=== PATIENT | female | born 1945 | race Caucasian/White ===

== ENCOUNTER 2018-06-29 23:38 | Inpatient (IN) | payer MEDICARE, OTHER ==
[~2018-06-29] VITALS: Ht 162.6 cm; Wt 50.0 kg
[2018-06-29] MEDS ORDERED: normal saline 1000ml 1,000 ML IV ONE (23:55)
[2018-06-30] VITALS (16 sets, daily range): BP systolic 70–146; BP diastolic 45–93
[2018-06-30 00:11] LABS: BASOPHILS % (AUTO) 0.4 % (0-1); EOSINOPHILS % (AUTO) 0.1 % (0-6); HEMATOCRIT 55.3 % (35.0-45.0); HEMOGLOBIN 17.9 g/dl (12.0-16.0); LYMPHOCYTES # (AUTO) 0.4 X10'3 (1.1-4.8); MEAN CORPUSCULAR HEMOGLOBIN 30.3 PG (27.0-31.0); MEAN CORPUSCULAR HGB CONC 32.2 % (33.0-36.5); MEAN CORPUSCULAR VOLUME 94.1 FL (78-98); MEAN PLATELET VOLUME 10.6 FL (7.4-10.4); MONOCYTES # (AUTO) 0.3 X10'3 (0-0.9); NEUTROPHILS % (AUTO) 88.5 % (42-75); PLATELET COUNT 103 X10'3 (140-440); RED BLOOD COUNT 5.89 X10'6 (4.20-5.60); RED CELL DISTRIBUTION WIDTH 19.9 % (11.5-14.5); WHITE BLOOD COUNT 6.7 X10'3 (4.5-11.0)
[2018-06-30 00:22] LABS: ALANINE AMINOTRANSFERASE 39 U/L (12-78); ALBUMIN 3.1 G/DL (3.4-5.0); ALKALINE PHOSPHATASE 77 IU/L (46-116); ANION GAP 22 (8-16); ASPARTATE AMINO TRANSFERASE 56 U/L (10-37); BILIRUBIN,TOTAL 4.9 MG/DL (0.1-1.0); BLOOD UREA NITROGEN 95 MG/DL (7-18); BUN/CREATININE RATIO 34.9 (6.6-38.0); CALCIUM 9.3 MG/DL (8.5-10.1); CHLORIDE 91 MMOL/L (99-107); CREATINE KINASE 65 U/L (26-192); CREATININE 2.72 MG/DL (0.40-0.90); GLUCOSE 84 MG/DL (70-104); SODIUM 128 MMOL/L (135-145); eGFR 17 ML/MIN
[2018-06-30 00:37] LABS: TOTAL CARBON DIOXIDE 14.7 MMOL/L (24-32)
[2018-06-30 00:38] LABS: POTASSIUM 6.3 MMOL/L (3.5-5.1); TROPONIN I 0.68 NG/ML (0.0-0.05)
[2018-06-30] MEDS ORDERED: dextrose 50%-water 50ml dispensing syringe IV ONE ×2 (00:40→02:15)
[2018-06-30] MEDS ORDERED: insulin regular, human 10 units/0.1 ml syringe IV ONE ×2 (00:40→02:15)
[2018-06-30] MEDS ORDERED: calcium chloride 100 MG/1 ML inj IV ONE (00:40)
[2018-06-30] MEDS ORDERED: aspirin 325mg tablet PO ONE (00:40)
[2018-06-30] MEDS ORDERED: sodium bicarbonate (8.4%) 1 mEq/ml syringe IV ONE ×2 (00:40→02:15)
[2018-06-30] MEDS ORDERED: normal saline 1000ml 1,000 ML IV ONE ×2 (00:40→00:45)
[2018-06-30 00:43] LABS: ALBUMIN/GLOBULIN RATIO 0.9 (1.1-1.5); TOTAL PROTEIN 6.6 G/DL (6.4-8.2)
[2018-06-30] MEDS ORDERED: CefTRIAXone/D5W-Rocephin 1gm 50 ML IV ONE (00:45)
[2018-06-30] MEDS ORDERED: clindamycin 600mg/D5W 50ml 50 ML IV ONE (00:45)
[2018-06-30 01:18] LABS: CLARITY,URINE SLIGHTLY CLOUDY (Clear); COLOR,URINE YELLOW (Yellow); GLUCOSE, URINE NEGATIVE (Neg); KETONES,URINE NEGATIVE (Neg); LEUKOCYTE ESTERASE ,URINE NEGATIVE (Neg); NITRITES, URINE NEGATIVE (Neg); OCCULT BLOOD,URINE NEGATIVE (Neg); PROTEIN,URINE TRACE mg/dl (Neg); UROBILINOGEN,URINE 0.2 E.U/dL (0.2-1.0)
[2018-06-30] MEDS ORDERED: silver sulfadiazine cream 50gm TP ONE ×2 (01:45)
[2018-06-30] MEDS ORDERED: NYSTATIN CREAM - 30GM TUBE TP ONE (01:45)
[2018-06-30 01:51] LABS: UA COLLECTION TYPE STRAIGHT CATH
[2018-06-30 01:55] LABS: AMORPHOUS URATES 1+; RBC,URINE NONE SEEN /HPF (0-2); SQUAMOUS EPITHELIAL CELL,UR NONE SEEN /LPF (FEW); WBC,URINE NONE SEEN /HPF (0-4)
[2018-06-30 01:58] LABS: BACTERIA,URINE 1+ /HPF (Neg)
[2018-06-30] MEDS: normal saline 1000ml 1,000 ML IV SCH (02:09)
[2018-06-30] MEDS ORDERED: magnesium hydroxide 30ml (MOM) UD suspension PO PRN (02:10)
[2018-06-30] MEDS ORDERED: mag hydrox/Alum hydrox/simeth 30ml oral suspension PO PRN (02:10)
[2018-06-30] MEDS ORDERED: HYDROmorphone 1 mg/ml syringe IV PRN ×2 (02:10)
[2018-06-30] MEDS ORDERED: metoclopramide 5 mg/ml inj IV PRN (02:10)
[2018-06-30] MEDS ORDERED: diphenhydrAMINE 50 mg/ml inj IV PRN (02:10)
[2018-06-30] MEDS ORDERED: diphenhydrAMINE 25mg capsule PO PRN (02:10)
[2018-06-30] MEDS ORDERED: acetaminophen 325mg tablet PO PRN (02:10)
[2018-06-30] MEDS ORDERED: ondansetron/PF 4mg/2ml inj IV PRN (02:10)
[2018-06-30] MEDS ORDERED: bisacodyl 10mg suppository rectal RC PRN (02:10)
[2018-06-30] MEDS ORDERED: HYDROcodone/acetaminophen 10/325mg tab PO PRN (02:10)
[2018-06-30] MEDS ORDERED: HYDROcodone/acetaminophen 5mg/325mg tablet PO PRN (02:10)
[2018-06-30] MEDS ORDERED: morphine 2 MG/ML inj. syringe IV PRN ×2 (02:10)
[2018-06-30] MEDS ORDERED: acetaminophen 650mg rectal suppository RC PRN (02:10)
[2018-06-30] MEDS ORDERED: albuterol 2.5 MG/3 ML nebule NEB ONE (02:15)
[2018-06-30] MEDS ORDERED: sodium polystyrene sulfonate 15gm/60ml oral suspension PO ONE (02:15)
[2018-06-30 02:25] LABS: LIPASE 239 U/L (73-393)
[2018-06-30] MEDS ORDERED: NO HOME MEDS (02:26)
[2018-06-30 02:40] LABS: ABG HCO3 8.8 mmol/L (22.0-26.0); ABG OXYGEN SATURATION 98.6 % (95-98); ABG PCO2 (T) 15.2 mmHg (32.0-45.0); ABG PH (T) 7.374 (7.350-7.450); ABG PO2 (T) 151.2 mmHg (83-108); FLOW 2 L/min; FMetHb 0.2 % (0.3-1.12); FO2Hb 98.4 % (94-100); PATIENT TEMPERATURE 36.3; RESPIRATORY RATE (OBSERVED) 20 b/min; TOTAL HEMOGLOBIN 17.3 G/dl (12.0-16.0)
[2018-06-30 02:42] LABS: PHOSPHORUS 4.2 MG/DL (2.3-4.5)
[2018-06-30] MEDS ORDERED: vancomycin/NS 1 GM ADD-VANTAGE 250 ML IV ONE (03:00)
[2018-06-30] MEDS: nystatin 15 GM powder TP SCH ×4 (03:53→21:03)
[2018-06-30] MEDS ORDERED: clindamycin 600mg/D5W 50ml 50 ML IV SCH (04:00)
[2018-06-30] MEDS ORDERED: piperacillin-tazo 2.25gm/50ml 50 ML IV SCH (04:00)
[2018-06-30 06:00] LABS: ALBUMIN 2.4 G/DL (3.4-5.0); ANION GAP 22 (8-16); BLOOD UREA NITROGEN 90 MG/DL (7-18); BUN/CREATININE RATIO 31.3 (6.6-38.0); CALCIUM 8.5 MG/DL (8.5-10.1); CHLORIDE 97 MMOL/L (99-107); CREATININE 2.88 MG/DL (0.40-0.90); GLUCOSE 79 MG/DL (70-104); SODIUM 133 MMOL/L (135-145); eGFR 16 ML/MIN
[2018-06-30 06:04] LABS: POTASSIUM 5.6 MMOL/L (3.5-5.1)
[2018-06-30 06:52] LABS: TOTAL CARBON DIOXIDE 13.9 MMOL/L (24-32)
[2018-06-30] MEDS ORDERED: DOPamine 400mg/D5W 250ml 250 ML IV SCH (07:50)
[2018-06-30] MEDS ORDERED: piperacillin/tazo 4.5gm/100ml 100 ML IV SCH (08:00)
[2018-06-30] MEDS ORDERED: nystatin 15 GM powder TP SCH ×3 (08:00)
[2018-06-30] MEDS: docusate sod 100mg capsule PO SCH ×2 (08:00→20:00)
[2018-06-30] MEDS ORDERED: vancomycin/NS 1 GM ADD-VANTAGE 250 ML IV SCH (08:00)
[2018-06-30] MEDS ORDERED: furosemide 40mg/4ml inj IV SCH (08:00)
[2018-06-30] MEDS ORDERED: pantoprazole 40 MG vial IV ONE ×2 (08:00→08:55)
[2018-06-30] MEDS ORDERED: vancomycin/NS 1 GM ADD-VANTAGE 250 ML IV PRN (09:15)
[2018-06-30] MEDS ORDERED: sincalide inj 0 MCG in normal saline 50ml IV soln 50 ML IV ONE (09:35)
[2018-06-30] MEDS: sodium bicarbonate (8.4%) inj. 150 MEQ in dextrose 5%-water 1,000 ML IV SCH ×2 (09:40→20:30)
[2018-06-30] MEDS: levoTHYROXINE sod inj. 100mcg/5 ml vial IV SCH (09:40)
[2018-06-30] MEDS: levoFLOXACIN-Levaquin 250mg/D5 50 ML IV SCH (09:41)
[2018-06-30] MEDS: DOBUTamine-DoBUTrex 500mg/D5W 250 ML IV SCH (10:37)
[2018-06-30] MEDS ORDERED: NORepinephrine 8mg/ 250ml NS 250 ML IV SCH (12:25)
[2018-06-30 13:16] LABS: OXYGEN SATURATION (MIXED VEN) 70.2 % (60-80); PO2 MIXED VENOUS (TEMP COR) 34.8 mmHg (35-46)
[2018-06-30 13:59] LABS: ALANINE AMINOTRANSFERASE 27 U/L (12-78); ALBUMIN 2.2 G/DL (3.4-5.0); ALBUMIN/GLOBULIN RATIO 0.8 (1.1-1.5); ALKALINE PHOSPHATASE 52 IU/L (46-116); ANION GAP 13 (8-16); ASPARTATE AMINO TRANSFERASE 47 U/L (10-37); BILIRUBIN,TOTAL 3.7 MG/DL (0.1-1.0); BLOOD UREA NITROGEN 89 MG/DL (7-18); BUN/CREATININE RATIO 34.9 (6.6-38.0); CALCIUM 8.6 MG/DL (8.5-10.1); CHLORIDE 99 MMOL/L (99-107); CREATININE 2.55 MG/DL (0.40-0.90); GLUCOSE 113 MG/DL (70-104); POTASSIUM 5.4 MMOL/L (3.5-5.1); SODIUM 131 MMOL/L (135-145); TOTAL CARBON DIOXIDE 19.2 MMOL/L (24-32); TOTAL PROTEIN 5.1 G/DL (6.4-8.2); eGFR 18 ML/MIN
[2018-06-30] MEDS: hydrocortisone sod succ/PF 100mg/2ml inj. IV SCH ×2 (14:32→21:03)
[2018-06-30] MEDS ORDERED: temazepam 15mg capsule PO PRN (21:00)
[2018-07-01] VITALS (24 sets, daily range): BP systolic 79–92; BP diastolic 48–60
[2018-07-01] MEDS: hydrocortisone sod succ/PF 100mg/2ml inj. IV SCH ×4 (02:40→21:13)
[2018-07-01] MEDS: VANCOMYCIN LEVEL IV SCH (02:40)
[2018-07-01] MEDS: sodium bicarbonate (8.4%) inj. 150 MEQ in dextrose 5%-water 1,000 ML IV SCH ×2 (02:40→13:27)
[2018-07-01 02:48] LABS: BASOPHILS % (AUTO) 0.3 % (0-1); EOSINOPHILS % (AUTO) 0 % (0-6); HEMATOCRIT 47.1 % (35.0-45.0); HEMOGLOBIN 15.7 g/dl (12.0-16.0); LYMPHOCYTES # (AUTO) 0.3 X10'3 (1.1-4.8); LYMPHOCYTES % (AUTO) 3.1 % (21-51); MEAN CORPUSCULAR HEMOGLOBIN 31.2 PG (27.0-31.0); MEAN CORPUSCULAR HGB CONC 33.3 % (33.0-36.5); MEAN CORPUSCULAR VOLUME 93.4 FL (78-98); MEAN PLATELET VOLUME 10.5 FL (7.4-10.4); MONOCYTES # (AUTO) 0.1 X10'3 (0-0.9); MONOCYTES % (AUTO) 1.1 % (2-12); NEUTROPHILS # (AUTO) 8.6 X10'3 (1.8-7.7); NEUTROPHILS % (AUTO) 95.5 % (42-75); PLATELET COUNT 95 X10'3 (140-440); RED BLOOD COUNT 5.04 X10'6 (4.20-5.60); RED CELL DISTRIBUTION WIDTH 21.4 % (11.5-14.5)
[2018-07-01 03:12] LABS: TOTAL CELLS COUNTED 100
[2018-07-01 03:13] LABS: PLATELET ESTIMATE DECREASED
[2018-07-01 03:14] LABS: ALANINE AMINOTRANSFERASE 18 U/L (12-78); ALBUMIN 2.1 G/DL (3.4-5.0); ALBUMIN/GLOBULIN RATIO 0.7 (1.1-1.5); ALKALINE PHOSPHATASE 57 IU/L (46-116); ANION GAP 15 (8-16); ANISOCYTOSIS 3+; ASPARTATE AMINO TRANSFERASE 38 U/L (10-37); BILIRUBIN,TOTAL 3.6 MG/DL (0.1-1.0); BLOOD UREA NITROGEN 90 MG/DL (7-18); BUN/CREATININE RATIO 34.5 (6.6-38.0); BURR CELLS 2+; CALCIUM 8.1 MG/DL (8.5-10.1); CHLORIDE 97 MMOL/L (99-107); CREATININE 2.61 MG/DL (0.40-0.90); ELLIPTOCYTES 1+; GLUCOSE 185 MG/DL (70-104); POTASSIUM 5.3 MMOL/L (3.5-5.1); SODIUM 132 MMOL/L (135-145); TOTAL CARBON DIOXIDE 20.4 MMOL/L (24-32); VANCOMYCIN,RANDOM 8.9 UG/ML; eGFR 18 ML/MIN
[2018-07-01 03:15] LABS: LARGE PLATELETS FEW; TOXIC GRANULATION 1+; TOXIC VACUOLATION 1+
[2018-07-01] MEDS ORDERED: vancomycin/NS 1 GM ADD-VANTAGE 250 ML IV ONE (06:55)
[2018-07-01 06:56] LABS: MAGNESIUM 2.5 MG/DL (1.5-2.4); PHOSPHORUS 3.5 MG/DL (2.3-4.5)
[2018-07-01] MEDS: nystatin 15 GM powder TP SCH ×3 (07:16→21:13)
[2018-07-01] MEDS: levoTHYROXINE sod inj. 100mcg/5 ml vial IV SCH (07:16)
[2018-07-01] MEDS: levoFLOXACIN-Levaquin 250mg/D5 50 ML IV SCH (07:16)
[2018-07-01] MEDS: pantoprazole 40 MG vial IV SCH (07:17)
[2018-07-01] MEDS: docusate sod 100mg capsule PO SCH ×2 (07:26→20:00)
[2018-07-01] MEDS ORDERED: furosemide 10 MG/1 ML 10ml inj IV ONE (11:05)
[2018-07-01] MEDS ORDERED: levoTHYROXINE sod inj. 100mcg/5 ml vial IV ONE (17:05)
[2018-07-01] MEDS ORDERED: traMADol 50MG tablet PO PRN (17:05)
[2018-07-01] MEDS ORDERED: silver sulfadiazine cream 400gm jar TP PRN (17:35)
[2018-07-01] MEDS: Protein Smoothie (high protein) 240ml (8oz) cup PO SCH (18:00)
[2018-07-01] MEDS: furosemide 10 MG/1 ML 10ml inj IV SCH (21:13)
[2018-07-01] MEDS: DOBUTamine-DoBUTrex 500mg/D5W 250 ML IV SCH (21:16)
[2018-07-02] VITALS (14 sets, daily range): BP systolic 72–86; BP diastolic 48–60
[2018-07-02] MEDS: normal saline 1000ml 1,000 ML IV SCH (01:41)
[2018-07-02] MEDS: hydrocortisone sod succ/PF 100mg/2ml inj. IV SCH ×3 (02:26→14:00)
[2018-07-02] MEDS: VANCOMYCIN LEVEL IV SCH (02:34)
[2018-07-02 03:50] LABS: BASOPHILS % (AUTO) 0 % (0-1); EOSINOPHILS % (AUTO) 0 % (0-6); LYMPHOCYTES # (AUTO) 0.2 X10'3 (1.1-4.8); LYMPHOCYTES % (AUTO) 2.1 % (21-51); MEAN CORPUSCULAR HEMOGLOBIN 31.1 PG (27.0-31.0); MEAN CORPUSCULAR HGB CONC 33.4 % (33.0-36.5); MEAN CORPUSCULAR VOLUME 93.2 FL (78-98); MEAN PLATELET VOLUME 9.7 FL (7.4-10.4); MONOCYTES # (AUTO) 0.2 X10'3 (0-0.9); MONOCYTES % (AUTO) 1.7 % (2-12); NEUTROPHILS % (AUTO) 96.2 % (42-75); PLATELET COUNT 72 X10'3 (140-440); RED BLOOD COUNT 4.83 X10'6 (4.20-5.60); RED CELL DISTRIBUTION WIDTH 20.9 % (11.5-14.5); WHITE BLOOD COUNT 9.3 X10'3 (4.5-11.0)
[2018-07-02 04:11] LABS: ALANINE AMINOTRANSFERASE 32 U/L (12-78); ALBUMIN 2.2 G/DL (3.4-5.0); ALKALINE PHOSPHATASE 56 IU/L (46-116); ANION GAP 9 (8-16); ASPARTATE AMINO TRANSFERASE 32 U/L (10-37); BILIRUBIN,TOTAL 4.1 MG/DL (0.1-1.0); BLOOD UREA NITROGEN 93 MG/DL (7-18); BUN/CREATININE RATIO 31.4 (6.6-38.0); CALCIUM 8.1 MG/DL (8.5-10.1); CHLORIDE 96 MMOL/L (99-107); CREATININE 2.96 MG/DL (0.40-0.90); GLUCOSE 206 MG/DL (70-104); SODIUM 131 MMOL/L (135-145); TOTAL CARBON DIOXIDE 25.6 MMOL/L (24-32); VANCOMYCIN,RANDOM 17.6 UG/ML; eGFR 15 ML/MIN
[2018-07-02 04:14] LABS: ALBUMIN/GLOBULIN RATIO 0.7 (1.1-1.5); TOTAL PROTEIN 5.3 G/DL (6.4-8.2)
[2018-07-02 04:26] LABS: ANISOCYTOSIS 3+; BURR CELLS FEW; ELLIPTOCYTES FEW; PLATELET ESTIMATE DECREASED; TEAR DROP CELLS FEW
[2018-07-02] MEDS: sodium bicarbonate (8.4%) inj. 150 MEQ in dextrose 5%-water 1,000 ML IV SCH (05:29)
[2018-07-02] MEDS: levoFLOXACIN-Levaquin 250mg/D5 50 ML IV SCH (07:27)
[2018-07-02] MEDS: pantoprazole 40 MG vial IV SCH (07:29)
[2018-07-02] MEDS: furosemide 10 MG/1 ML 10ml inj IV SCH (07:29)
[2018-07-02] MEDS: nystatin 15 GM powder TP SCH ×2 (07:30→13:29)
[2018-07-02 07:35] LABS: MAGNESIUM 2.3 MG/DL (1.5-2.4)
[2018-07-02 07:39] LABS: PHOSPHORUS 2.9 MG/DL (2.3-4.5)
[2018-07-02] MEDS ORDERED: levoTHYROXINE sod inj. 100mcg/5 ml vial IV SCH (08:00)
[2018-07-02] MEDS: docusate sod 100mg capsule PO SCH (08:00)
[2018-07-02] MEDS: Protein Smoothie (high protein) 240ml (8oz) cup PO SCH ×2 (08:00→13:29)
[2018-07-02] MEDS ORDERED: LEVO100T PO (12:38)
== END 2018-07-02 14:42 | disposition home or self-care (01) | DRG 871 ==
LOC: ER 23:39 → ED HOLD 06-30 02:09 → PCU 3S 06-30 03:29 → ICU 2S 06-30 08:05
PROVIDERS: ADMIT Family Medicine; ATTEND Internal Medicine Critical Care Medicine
PROC: 02HV33Z Insertion of Infusion Device into Superior Vena Cava, Percutaneous Approach (ICD-10-PCS; principal; 2018-06-30)
DX: A41.9 Sepsis, unspecified organism (principal); K72.00 Acute and subacute hepatic failure without coma; I21.A1 Myocardial infarction type 2; J96.90 Respiratory failure, unspecified, unspecified whether with hypoxia or hypercapnia; R57.0 Cardiogenic shock; E87.1 Hypo-osmolality and hyponatremia; E87.2 Acidosis; J90 Pleural effusion, not elsewhere classified; N17.9 Acute kidney failure, unspecified; N39.0 Urinary tract infection, site not specified; R18.8 Other ascites; R64 Cachexia; Z68.1 Body mass index [BMI] 19.9 or less, adult; T21.02XA Burn of unspecified degree of abdominal wall, initial encounter; K76.9 Liver disease, unspecified; I50.9 Heart failure, unspecified; N18.9 Chronic kidney disease, unspecified; F41.9 Anxiety disorder, unspecified; E03.9 Hypothyroidism, unspecified; E86.1 Hypovolemia; E87.5 Hyperkalemia; K74.60 Unspecified cirrhosis of liver; R13.10 Dysphagia, unspecified; Z66 Do not resuscitate; Z88.0 Allergy status to penicillin; Y93.89 Activity, other specified; Y92.89 Other specified places as the place of occurrence of the external cause; Y99.8 Other external cause status
CPT/HCPCS: 36415; 36600; 70450; 71045; 71250; 72125; 74176; 80048; 80053; 80202; 81001; 82550; 82803; 82810; 82948; 83605; 83690; 83735; 83880; 84100; 84443; 84484; 85018; 85025; 87040; 87070; 87077; 87088; 87186; 92616; 93005; 93306; 96361; 96365; 96368; 96375; 99285; C9113; G0378; J0696; J1250; J1720; J1815; J1940; J1956; J2270; J2543; J3370; J3490